=== PATIENT | female | born 1960 | race African-American/Black ===

== ENCOUNTER 2019-01-20 11:07 | Emergency (ER) | payer MEDICARE ==
[2019-01-20] MEDS ORDERED: NORMAL SALINE 1000 ML 1,000 ML IV ONE (12:01)
--- NOTE | 2019-01-20 12:03 | ER Document Report ---
ED Medical Screen (RME) - General Chief Complaint: High Blood Sugar Stated Complaint: HIGH BLOOD SUGAR Time Seen by Provider: 01/20/19 11:55 Notes: Patient is a 58-year-old female with a history of type 2 diabetes who presents to the emergency department with a chief complaint of elevated blood sugar. Patient states she is visiting from out of town and over the past week her blood glucose has been running between 400-500. Patient states her normal range is in the upper 100s. Patient states she does and has been taking her medications as prescribed which are metformin 1000 mg twice a day and Lantus 55 units twice a day. Patient states she was just seen at the urgent care a few days ago and diagnosed with a urinary tract infection. Patient cannot remember the antibiotic she was placed on but has been taking her medication. Patient reports a urinary frequency. Patient reports blurred vision. Patient states she did vomit once a few days ago but has not had any nausea, vomiting or diarrhea in the past few days. Patient denies fever. - Related Data Allergies/Adverse Reactions: lisinopril Allergy (Verified 01/20/19 11:12) metoprolol Adverse Reaction (Verified 01/20/19 11:12) nifedipine [From Procardia] Adverse Reaction (Verified 01/20/19 11:12) Physical Exam - Vital signs Vitals: Temp Pulse Resp BP Pulse Ox 98.0 F 100 16 149/76 H 99 01/20/19 11:14 01/20/19 11:14 01/20/19 11:14 01/20/19 11:14 01/20/19 11:14 - Cardiovascular Rhythm: Regular Heart sounds: Normal auscultation, S1 appreciated, S2 appreciated - Abdominal Inspection: Obese Distension: No distension Bowel sounds: Normal Tenderness: Nontender Organomegaly: No organomegaly Course - Re-evaluation Re-evalutation: 01/20/19 12:03 I have greeted and performed a rapid initial assessment of this patient. A comprehensive ED assessment and evaluation of the patient, analysis of test results and completion of the medical decision making process will be conducted by additional ED providers. - Vital Signs Vital signs: Temp Pulse Resp BP Pulse Ox 98.0 F 100 16 149/76 H 99 01/20/19 11:14 01/20/19 11:14 01/20/19 11:14 01/20/19 11:14 01/20/19 11:14
--- NOTE | 2019-01-20 12:32 | ER Document Report ---
Entered by YUNIOR GTZ SCRIBE 01/20/19 1224 Acting as scribe for:NYASIA NULL MD ED General - General Chief Complaint: High Blood Sugar Stated Complaint: HIGH BLOOD SUGAR Time Seen by Provider: 01/20/19 11:55 Mode of Arrival: Ambulatory Information source: Patient Notes: 58 year old female that presents to the emergency department today with complaints of elevated blood glucose levels for the last x3 weeks. Patient is here visiting her daughter here from [place]. Patient states she arrived here on 12/23. Patient has not missed any of her diabetes medications. Patient was seen at an urgent care a few days ago for burning with urination and she was started on fluconazole and valacyclovir for a "urinary tract infection and yeast infection". Patient filled the fluconazole on 01/17 and she states her burning with urination has since cleared up. Patient also adds that she has had a cough for the last week with green sputum. - Related Data Allergies/Adverse Reactions: lisinopril Allergy (Verified 01/20/19 11:12) metoprolol Adverse Reaction (Verified 01/20/19 11:12) nifedipine [From Procardia] Adverse Reaction (Verified 01/20/19 11:12) Past Medical History - General Information source: Patient - Social History Smoking Status: Current Every Day Smoker Cigarette use (# per day): Yes - 06/06 ppf Frequency of alcohol use: None Drug Abuse: None Lives with: Family Family History: Reviewed & Not Pertinent - Past Medical History Cardiac Medical History: Reports: Hx Hypercholesterolemia, Hx Hypertension Endocrine Medical History: Reports: Hx Diabetes Mellitus Type 2 Review of Systems - Review of Systems Constitutional: See HPI, Other - elevated BGLs in the 4-500s EENT: No symptoms reported Cardiovascular: No symptoms reported Respiratory: See HPI, Cough Gastrointestinal: No symptoms reported Genitourinary: No symptoms reported Female Genitourinary: No symptoms reported Musculoskeletal: No symptoms reported Skin: No symptoms reported Hematologic/Lymphatic: No symptoms reported Neurological/Psychological: No symptoms reported -: Yes All other systems reviewed and negative Physical Exam - Vital signs Vitals: Temp Pulse Resp BP Pulse Ox 98.0 F 100 16 149/76 H 99 01/20/19 11:14 01/20/19 11:14 01/20/19 11:14 01/20/19 11:14 01/20/19 11:14 - Notes Notes: Physical Exam: General: Alert, appears well. Obese. HEENT: Normocephalic. Atraumatic. PERRL. Extraocular movements intact. Oropharynx clear. Neck: Supple. Non-tender. Respiratory: No respiratory distress. Clear and equal breath sounds bilaterally. Cardiovascular: Regular rate and rhythm. Abdominal: Obese. Non-tender. No distension. Normal Bowel Sounds. Back: Non-tender. No deformity or step off. Extremities: Moves all four extremities. Upper extremities: Normal inspection. Normal ROM. Lower extremities: Normal inspection. No edema. Normal ROM. Neurological: Normal cognition. AAOx4. Normal speech. Psychological: Normal affect. Normal Mood. Skin: Warm. Dry. Normal color. Course - Re-evaluation Re-evalutation: 01/20/19 14:20 Patient's blood sugar today was 240, hemoglobin A1c was 12.4 This would suggest that her blood sugars of 400-500 may have been going on for much longer than the 2 to 3 weeks that she reports. - Vital Signs Vital signs: Temp Pulse Resp BP Pulse Ox 97.6 F 100 17 156/73 H 99 01/20/19 14:04 01/20/19 11:14 01/20/19 14:04 01/20/19 14:04 01/20/19 14:04 - Laboratory Result Diagrams: 01/20/19 13:00 01/20/19 13:00 Laboratory results interpreted by me: 01/20/19 01/20/19 01/20/19 12:03 12:10 13:00 MCH 26.2 L RDW 14.5 H Sodium Glucose POC Glucose 244 H Hemoglobin A1c % Urine Protein 30 H Urine Glucose (UA) 150 H Urine Blood SMALL H 01/20/19 01/20/19 13:00 13:00 MCH RDW Sodium 135.1 L Glucose 240 H POC Glucose Hemoglobin A1c % 12.4 H Urine Protein Urine Glucose (UA) Urine Blood Discharge - Discharge Clinical Impression: Poorly controlled diabetes mellitus Hyperglycemia due to type 2 diabetes mellitus Qualifiers: Diabetes mellitus watermaster insulin use: with watermaster use Qualified Code(s): E11.65 - Type 2 diabetes mellitus with hyperglycemia; Z79.4 - terminal make up operator (current) use of insulin Condition: Stable Disposition: HOME, SELF-CARE Additional Instructions: There were no signs of infection found in your lab work and exam today. Your blood sugar today was 240. Your hemoglobin A1c was 12.4, which means your sugars are running quite high for several months. Continue your regular medications. Try to lose weight. Increase your Lantus to 60 units twice daily until you see your blood sugars coming back down to their normal levels. Follow-up with a local primary care provider if you are unable to get your blood sugars under control. RETURN TO THE EMERGENCY ROOM IF ANY NEW OR WORSENING SYMPTOMS. Scribe Attestation: 01/20/19 12:32 I personally performed the services described in the documentation, reviewed and edited the documentation which was dictated to the scribe in my presence, and it accurately records my words and actions. I personally performed the services described in the documentation, reviewed and edited the documentation which was dictated to the scribe in my presence, and it accurately records my words and actions.
[2019-01-20 12:40] LABS: APPEARANCE,URINE SLIGHTLY-CLOUDY; BILIRUBIN,URINE NEGATIVE (NEGATIVE); COLOR,URINE YELLOW; GLUCOSE, URINE 150 mg/dL (NEGATIVE); KETONES,URINE NEGATIVE (NEGATIVE); LEUKOCYTE ESTERASE,URINE NEGATIVE (NEGATIVE); NITRITE,URINE NEGATIVE (NEGATIVE); PROTEIN,URINE 30 mg/dL (NEGATIVE); UROBILINOGEN,URINE NEGATIVE mg/dL (<2.0)
[2019-01-20 13:10] LABS: VENOUS BLOOD BASE EXCESS -0.7 mmol/L; VENOUS BLOOD HCO3 24.3 mmol/L (20-32); VENOUS BLOOD PCO2 41.1 mmHg (35-63); VENOUS BLOOD PH 7.39 (7.30-7.42)
[2019-01-20 13:12] LABS: ABSOLUTE BASOPHILS # (AUTO) 0.1 10^3/uL (0.0-0.2); ABSOLUTE EOSINOPHILS # (AUTO) 0.1 10^3/uL (0.0-0.6); ABSOLUTE LYMPHOCYTES (AUTO) 2.9 10^3/uL (0.5-4.7); ABSOLUTE MONOCYTES (AUTO) 0.4 10^3/uL (0.1-1.4); ABSOLUTE NEUT (AUTO) 5.6 10^3/uL (1.7-8.2); EOSINOPHILS % (AUTO) 1.3 % (0-6); HEMATOCRIT 38.1 % (36.0-47.0); HEMOGLOBIN 12.2 g/dL (12.0-15.5); LYMPHOCYTES % (AUTO) 31.6 % (13-45); MEAN CORPUSCULAR HEMOGLOBIN 26.2 pg (27.0-33.4); MEAN CORPUSCULAR VOLUME 82 fl (80-97); MONOCYTES % (AUTO) 4.6 % (3-13); PLATELET COUNT 314 10^3/uL (150-450); RED BLOOD COUNT 4.65 10^6/uL (3.72-5.28); RED CELL DISTRIBUTION WIDTH 14.5 % (11.5-14.0); SEGMENTED NEUTROPHILS % (AUTO) 61.5 % (42-78); TOTAL CELLS COUNTED % (AUTO) 100 %; WHITE BLOOD COUNT 9.1 10^3/uL (4.0-10.5)
[2019-01-20 13:26] LABS: BLOOD UREA NITROGEN 17 mg/dL (7-20); CALCIUM 9.8 mg/dL (8.4-10.2); GLUCOSE 240 mg/dL (75-110)
[2019-01-20 13:27] LABS: ALBUMIN 4.3 g/dL (3.5-5.0); ALKALINE PHOSPHATASE 115 U/L (38-126); ANION GAP 11 (5-19); ASPARTATE AMINO TRANSFERASE 36 U/L (14-36); BILIRUBIN,TOTAL 0.5 mg/dL (0.2-1.3); CARBON DIOXIDE 24 mmol/L (22-30); CHLORIDE 100 mmol/L (98-107); POTASSIUM 3.8 mmol/L (3.6-5.0)
[2019-01-20 13:28] LABS: BILIRUBIN,DIRECT 0.3 mg/dL (0.0-0.4); TOTAL PROTEIN 7.1 g/dL (6.3-8.2)
[2019-01-20 14:12] VITALS: BP 156/73
== END 2019-01-20 15:05 | disposition home or self-care (01) ==
LOC: ER 11:07
DX: E11.65 Type 2 diabetes mellitus with hyperglycemia (principal); Z79.4 Long term (current) use of insulin; B37.9 Candidiasis, unspecified; R05 Cough; I10 Essential (primary) hypertension; F17.210 Nicotine dependence, cigarettes, uncomplicated; Z88.8 Allergy status to other drugs, medicaments and biological substances
CPT/HCPCS: 36415; 87040; 82962; 85025; 80053; 81001; 83036; 82803; J7030; 96360; 99284